=== PATIENT | female | born 1980 | race Caucasian/White ===

== ENCOUNTER → 2016-06-03 | Outpatient (REF) | payer OTHER | LOC: M LABNEURO 12:58 | PROVIDERS: ATTEND Physician Assistant Medical | DX: E55.9 Vitamin D deficiency, unspecified (principal) ==

== ENCOUNTER → 2018-06-12 | Outpatient (CLI) | payer OTHER ==
--- NOTE | 2018-06-12 17:27 | REP ---
GASTRIC EMPTYING STUDY: 06/12/2018. Clinical history: 37-year-old female with early satiety, nausea. Chronic heartburn and reflux. Technique: The patient received 1.04 mCi technetium 99m sulfur colloid in two scrambled eggs mixed with 6 ounces of water. Imaging over the right upper quadrant anterior posterior projections was performed two minute intervals for 90 minutes. Region of interest was drawn around the stomach and gastric emptying calculated by a semiautomated method. Findings: Visually the 90 minutes of imaging showed no evidence of gastroesophageal reflux in the course of this exam. The 90-minute gastric emptying is only 9%. The normal T1 half is 90 minutes and the estimated THE one half for this patient would be extrapolated to 502 minutes which represents very severe delayed gastric emptying. Electronically Signed by Kenroy Martinez MD 06/12/2018 08:51 P
== END ==
LOC: M RAD 12:23
PROVIDERS: ATTEND Physician Assistant Medical
DX: K30 Functional dyspepsia (principal); R11.0 Nausea; R10.84 Generalized abdominal pain
CPT/HCPCS: 78264; A9541

== ENCOUNTER 2018-07-09 11:37 | Day surgery (SDC) | payer OTHER ==
[~2018-07-09] VITALS: Ht 165.1 cm; Wt 107.5 kg
[~2018-07-09 11:37] MED LIST: AMLO5TAB6 PO; BACL10TA2 PO; D-3-50003 PO; EXCETAB80 PO; FLAX100012 PO; GABA600T4 PO; HYDR-643 PO; LEVO100T5 PO; MECL1CHW PO; MIRA3350 PO; PROT1TAB2 PO; RELP40TA PO; TRAM50TA2 PO; VITA500C24 PO
[2018-07-09] MEDS ORDERED: NS 1,000 ML IV ONE (14:00)
[2018-07-09] MEDS ORDERED: TRAZ-160 PO (14:12)
[2018-07-09] MEDS ORDERED: PROPOFOL 200 MG/20 ML VIAL As Ordered ONE (15:23)
[2018-07-09] MEDS ORDERED: LIDOCAINE 2% INJ 100 MG/5 ML SDV (FOR ANES.) As Ordered ONE (15:23)
[2018-07-09] MEDS ORDERED: fentaNYL 100 MCG/2 ML INJECTION (J3010) As Ordered ONE (15:24)
--- NOTE | 2018-07-09 15:36 | ROOR ---
Patient Name: Cleve Mendez Procedure Date: 07/09/2018 3:21 PM Date of : 1980 Age: 38 Room: [facility] Gender: Female Note Status: Finalized Procedure: Upper GI endoscopy Indications: Heartburn, Suspected esophageal reflux, Gastroparesis Providers: Alvino LUI MD Referring MD: Lupe Romero MD Requesting Provider: Medicines: Monitored Anesthesia Care Complications: No immediate complications. Procedure: Pre-Anesthesia Assessment: - The heart rate, respiratory rate, oxygen saturations, blood pressure, adequacy of pulmonary ventilation, and response to care were monitored throughout the procedure. The Endoscope was introduced through the mouth, and advanced to the second part of duodenum. The upper GI endoscopy was accomplished without difficulty. The patient tolerated the procedure well. Findings: The esophagus was normal. The stomach was normal. The examined duodenum was normal. (incidental small diverticulum in second portion) Impression: - Normal esophagus. - Normal stomach. - Normal examined duodenum. - No specimens collected. Recommendation: - Continue present medications. - Gastroparesis diet: - Eat smaller, more frequent meals throughout the day. - Low fat diet. - Liquid/soft foods are tolerated better than solid foods. - Low fiber/well cooked vegetables are tolerated better than high fiber/fibrous foods/raw vegetables. - Avoid medications that inhibit gastric/intestinal motility such as narcotic medications. Alvino Lui MD Alvino LUI MD 07/09/2018 3:35:43 PM Electronically signed by Alvino LUI MD Number of Addenda: 0 Note Initiated On: 07/09/2018 3:21 PM Estimated Blood Loss: Estimated blood loss: none.
--- NOTE | 2018-07-09 15:50 | ROOR ---
Patient Name: Cleve Mendez Procedure Date: 07/09/2018 3:24 PM Date of : 1980 Age: 38 Room: [facility] Gender: Female Note Status: Finalized Procedure: Colonoscopy Indications: High risk colon cancer surveillance: Personal history of colonic polyps, Last colonoscopy: May 2013 Providers: Alvino LUI MD Referring MD: Lupe Romero MD Requesting Provider: Medicines: Monitored Anesthesia Care Complications: No immediate complications. Procedure: Pre-Anesthesia Assessment: - The heart rate, respiratory rate, oxygen saturations, blood pressure, adequacy of pulmonary ventilation, and response to care were monitored throughout the procedure. The Colonoscope was introduced through the anus and advanced to 10 cm into the ileum. The colonoscopy was performed without difficulty. The patient tolerated the procedure well. The quality of the bowel preparation was adequate. Findings: The perianal and digital rectal examinations were normal. (EXAM: Complete, PREP: Fair/Adequate) Multiple medium-mouthed diverticula were found in the sigmoid colon. Small Internal Hemorrhoids. The exam was otherwise without abnormality on direct and retroflexion views. Impression: - (EXAM: Complete, PREP: Fair/Adequate) - Diverticulosis in the sigmoid colon. - Small Internal Hemorrhoids. - The examination was otherwise normal on direct and retroflexion views. - No specimens collected. Recommendation: - Repeat colonoscopy in 5 years because the bowel preparation was suboptimal. Alvino Lui MD Alvino ULI MD 07/09/2018 3:50:26 PM Electronically signed by Alvino LUI MD Number of Addenda: 0 Note Initiated On: 07/09/2018 3:24 PM Estimated Blood Loss: Estimated blood loss: none.
[2018-07-09] MEDS ORDERED: ONDANSETRON 4MG/2ML VIAL (J2405) As Ordered ONE (15:57)
[2018-07-09 16:45] VITALS: BP 139/85
== END 2018-07-09 17:01 | disposition home or self-care (01) ==
LOC: M OPP 11:37
PROVIDERS: ATTEND Internal Medicine Gastroenterology
DX: Z86.010 Personal history of colon polyps (principal); K57.30 Diverticulosis of large intestine without perforation or abscess without bleeding; K64.8 Other hemorrhoids; R12 Heartburn; K31.84 Gastroparesis; G47.30 Sleep apnea, unspecified; E03.9 Hypothyroidism, unspecified; J45.909 Unspecified asthma, uncomplicated; K21.9 Gastro-esophageal reflux disease without esophagitis; K44.9 Diaphragmatic hernia without obstruction or gangrene; K57.92 Diverticulitis of intestine, part unspecified, without perforation or abscess without bleeding; K22.70 Barrett's esophagus without dysplasia; Z88.1 Allergy status to other antibiotic agents; Z88.8 Allergy status to other drugs, medicaments and biological substances; Z79.891 Long term (current) use of opiate analgesic; Z79.899 Other long term (current) drug therapy; Z83.3 Family history of diabetes mellitus; Z82.49 Family history of ischemic heart disease and other diseases of the circulatory system; Z84.1 Family history of disorders of kidney and ureter; Z80.3 Family history of malignant neoplasm of breast; Z80.41 Family history of malignant neoplasm of ovary; Z80.42 Family history of malignant neoplasm of prostate
CPT/HCPCS: 43235; 45378; J3010

== ENCOUNTER → 2019-02-04 | Outpatient (CLI) | payer OTHER ==
[~2019-02-04] MED LIST changes: +DEXI60CA2 PO; +RIZA10TA58 PO; +TRAZ-252 PO
[2019-02-04 10:51] LABS: BASO # 0.1 10^3/uL (0.0-0.2); BASO % 0.9 % (0.0-1.0); EOS # 0.2 10^3/uL (0.0-0.5); EOS % 2.4 % (0.0-3.0); HEMOGLOBIN 14.1 g/dl (12.0-15.5); LYMPH # 3.2 10^3/uL (1.5-5.0); LYMPH % 32.4 % (24.0-44.0); MEAN CORPUSCULAR HGB CONC 32.8 g/dl (32.0-36.5); MEAN CORPUSCULAR VOLUME 94.5 fl (80.0-96.0); MONO # 0.8 10^3/uL (0.0-0.8); NEUTROPHILS # 5.5 10^3/uL (1.5-8.5); PLATELET COUNT, AUTOMATED 371 10^3/uL (150-450); RED BLOOD COUNT 4.55 10^6/uL (4.00-5.40); WHITE BLOOD COUNT 9.8 10^3/uL (4.0-10.0)
[2019-02-04 11:10] LABS: HEMOGLOBIN A1c 5.3 %
[2019-02-04 11:24] LABS: ALBUMIN 3.7 GM/DL (3.2-5.2); ALT/SGPT 46 U/L (12-78); BILIRUBIN,TOTAL 0.4 MG/DL (0.2-1.0); BLOOD UREA NITROGEN 9 MG/DL (7-18); CALCIUM LEVEL 9.5 MG/DL (8.5-10.1); CARBON DIOXIDE LEVEL 24 MEQ/L (21-32); CHLORIDE LEVEL 109 MEQ/L (98-107); CHOLESTEROL LEVEL 204 MG/DL (<200); CHOLESTEROL RISK RATIO 4.434 (<5); CREATININE FOR GFR 0.77 MG/DL (0.55-1.30); FREE T4 1.35 NG/DL (0.76-1.46); GLOMERULAR FILTRATION RATE > 60.0 (>58); GLUCOSE, FASTING 86 MG/DL (70-100); HDL CHOLESTEROL 46 MG/DL (>40); LDL CHOLESTEROL 129 MG/DL (<100); NON-HDL-C 158 MG/DL; POTASSIUM SERUM 4.2 MEQ/L (3.5-5.1); SODIUM LEVEL 141 MEQ/L (136-145); TOTAL PROTEIN 8.4 GM/DL (6.4-8.2); TRIGLYCERIDES LEVEL 144 MG/DL (<150)
== END ==
LOC: M LAB 10:01
PROVIDERS: ATTEND Nurse Practitioner Family
DX: E03.9 Hypothyroidism, unspecified (principal); F32.9 Major depressive disorder, single episode, unspecified

== ENCOUNTER → 2019-08-19 | Outpatient (REF) | payer OTHER ==
[2019-08-19 18:32] LABS: BASO # 0.1 10^3/uL (0.0-0.2); BASO % 0.5 % (0.0-1.0); EOS # 0.1 10^3/uL (0.0-0.5); EOS % 0.4 % (0.0-3.0); HEMATOCRIT 44.7 % (36.0-47.0); HEMOGLOBIN 14.6 g/dl (12.0-15.5); MEAN CORPUSCULAR HGB CONC 32.7 g/dl (32.0-36.5); MEAN CORPUSCULAR VOLUME 94.9 fl (80.0-96.0); MONO # 1.5 10^3/uL (0.0-0.8); MONO % 7.2 % (0.0-5.0); NEUTROPHILS # 13.9 10^3/uL (1.5-8.5); NEUTROPHILS % 67.4 % (36.0-66.0); PLATELET COUNT, AUTOMATED 370 10^3/uL (150-450); RED BLOOD COUNT 4.71 10^6/uL (4.00-5.40)
[2019-08-19 18:36] LABS: WHITE BLOOD COUNT 20.7 10^3/uL (4.0-10.0)
[2019-08-19 18:44] LABS: INR 1.03; PROTHROMBIN TIME 13.2 SECONDS (11.8-14.0)
[2019-08-19 18:45] LABS: PARTIAL THROMBOPLASTIN TIME 33.8 SECONDS (25.0-38.4)
[2019-08-19 18:46] LABS: HEMOGLOBIN A1c 5.7 %
[2019-08-19 19:00] LABS: ALBUMIN 3.8 GM/DL (3.2-5.2); ALT/SGPT 26 U/L (12-78); BILIRUBIN,TOTAL 0.6 MG/DL (0.2-1.0); BLOOD UREA NITROGEN 12 MG/DL (7-18); CARBON DIOXIDE LEVEL 23 MEQ/L (21-32); CHLORIDE LEVEL 104 MEQ/L (98-107); CHOLESTEROL LEVEL 204 MG/DL (<200); CHOLESTEROL RISK RATIO 3.709 (<5); CREATININE FOR GFR 0.87 MG/DL (0.55-1.30); FREE T4 1.35 NG/DL (0.76-1.46); GLOMERULAR FILTRATION RATE > 60.0 (>58); GLUCOSE, FASTING 88 MG/DL (70-100); HDL CHOLESTEROL 55 MG/DL (>40); LDL CHOLESTEROL 119 MG/DL (<100); NON-HDL-C 149 MG/DL; SODIUM LEVEL 137 MEQ/L (136-145); TOTAL PROTEIN 8.2 GM/DL (6.4-8.2); TRIGLYCERIDES LEVEL 152 MG/DL (<150)
== END ==
LOC: M SFHCPLAZ 15:48
PROVIDERS: ATTEND Family Medicine
DX: Z01.818 Encounter for other preprocedural examination (principal)

== ENCOUNTER → 2020-01-01 | Outpatient (CLI) | payer OTHER ==
[~2020-01-01] MED LIST changes: +AMLO1TAB24 PO; -AMLO5TAB6 PO
== END ==
LOC: M PLALAB 10:12
PROVIDERS: ATTEND Physician Assistant Medical
DX: R51 Headache (principal); H53.9 Unspecified visual disturbance

== ENCOUNTER → 2020-01-31 | Outpatient (CLI) | payer OTHER ==
--- NOTE | 2020-01-31 13:05 | REPPI ---
INDICATION: R05 COUGH. COMPARISON: 09/08/2005 FINDINGS: The superior mediastinal structures are midline. The cardiac silhouette is unremarkable in size, shape, and position. The diaphragmatic surfaces of the lungs are regular, and the costophrenic angles are clear. The pulmonary camacho are clear. The imaged osseous structures are intact. IMPRESSION: There is no acute cardiopulmonary disease. <Electronically signed by Jarad Malave > 01/31/20 [id number]
== END ==
LOC: M PLAIMG 12:10
PROVIDERS: ATTEND Nurse Practitioner Family
DX: R05 Cough (principal)

== ENCOUNTER → 2020-01-31 | Outpatient (REF) | payer OTHER ==
[2020-01-31 15:45] LABS: BASO # 0.1 10^3/uL (0.0-0.2); BASO % 0.4 % (0.0-1.0); EOS # 0.1 10^3/uL (0.0-0.5); EOS % 0.3 % (0.0-3.0); HEMATOCRIT 42.6 % (36.0-47.0); HEMOGLOBIN 13.7 g/dl (12.0-15.5); LYMPH # 3.3 10^3/uL (1.5-5.0); LYMPH % 19.7 % (24.0-44.0); MEAN CORPUSCULAR HEMOGLOBIN 30.4 pg (27.0-33.0); MEAN CORPUSCULAR HGB CONC 32.2 g/dl (32.0-36.5); MEAN CORPUSCULAR VOLUME 94.5 fl (80.0-96.0); MONO # 1.4 10^3/uL (0.0-0.8); MONO % 8.4 % (0.0-5.0); NEUTROPHILS % 70.7 % (36.0-66.0); PLATELET COUNT, AUTOMATED 426 10^3/uL (150-450); RED BLOOD COUNT 4.51 10^6/uL (4.00-5.40)
[2020-01-31 15:57] LABS: HEMOGLOBIN A1c 5.7 %
[2020-01-31 16:19] LABS: ALBUMIN 3.6 GM/DL (3.2-5.2); ALT/SGPT 28 U/L (12-78); BILIRUBIN,TOTAL 0.3 MG/DL (0.2-1.0); BLOOD UREA NITROGEN 9 MG/DL (7-18); CALCIUM LEVEL 9.4 MG/DL (8.5-10.1); CARBON DIOXIDE LEVEL 23 MEQ/L (21-32); CHLORIDE LEVEL 107 MEQ/L (98-107); CHOLESTEROL LEVEL 178 MG/DL (<200); CHOLESTEROL RISK RATIO 3.178 (<5); CREATININE FOR GFR 0.77 MG/DL (0.55-1.30); FREE T4 1.12 NG/DL (0.76-1.46); GLOMERULAR FILTRATION RATE > 60.0 (>58); GLUCOSE, FASTING 99 MG/DL (70-100); HDL CHOLESTEROL 56 MG/DL (>40); LDL CHOLESTEROL 105 MG/DL (<100); NON-HDL-C 122 MG/DL; POTASSIUM SERUM 4.2 MEQ/L (3.5-5.1); SODIUM LEVEL 139 MEQ/L (136-145); THYROID STIMULATING HORMONE 0.638 uIU/ML (0.358-3.740); TOTAL PROTEIN 8.2 GM/DL (6.4-8.2); TRIGLYCERIDES LEVEL 83 MG/DL (<150)
== END ==
LOC: M SFHCPLAZ 12:10
PROVIDERS: ATTEND Nurse Practitioner Family
DX: E03.9 Hypothyroidism, unspecified (principal); E78.2 Mixed hyperlipidemia; F32.9 Major depressive disorder, single episode, unspecified; R73.01 Impaired fasting glucose

== ENCOUNTER → 2020-08-21 | Outpatient (REF) | payer OTHER ==
[2020-08-21 12:51] LABS: BASO # 0.1 10^3/uL (0.0-0.2); BASO % 0.8 % (0.0-1.0); EOS # 0.2 10^3/uL (0.0-0.5); EOS % 1.3 % (0.0-3.0); HEMATOCRIT 42.8 % (36.0-47.0); HEMOGLOBIN 14.2 g/dl (12.0-15.5); LYMPH # 3.8 10^3/uL (1.5-5.0); LYMPH % 29.5 % (24.0-44.0); MEAN CORPUSCULAR HEMOGLOBIN 31.6 pg (27.0-33.0); MEAN CORPUSCULAR HGB CONC 33.2 g/dl (32.0-36.5); MEAN CORPUSCULAR VOLUME 95.1 fl (80.0-96.0); MONO # 1.1 10^3/uL (0.0-0.8); MONO % 8.3 % (2.0-8.0); NEUTROPHILS # 7.7 10^3/uL (1.5-8.5); NEUTROPHILS % 59.8 % (36.0-66.0); PLATELET COUNT, AUTOMATED 374 10^3/uL (150-450); WHITE BLOOD COUNT 12.8 10^3/uL (4.0-10.0)
[2020-08-21 13:09] LABS: HEMOGLOBIN A1c 5.4 %
[2020-08-21 13:41] LABS: ALBUMIN 3.7 GM/DL (3.2-5.2); ALT/SGPT 23 U/L (12-78); BILIRUBIN,TOTAL 0.4 MG/DL (0.2-1.0); BLOOD UREA NITROGEN 8 MG/DL (7-18); CALCIUM LEVEL 9.1 MG/DL (8.5-10.1); CARBON DIOXIDE LEVEL 22 MEQ/L (21-32); CHLORIDE LEVEL 108 MEQ/L (98-107); CHOLESTEROL LEVEL 195 MG/DL (<200); CHOLESTEROL RISK RATIO 4.148 (<5); CREATININE FOR GFR 0.76 MG/DL (0.55-1.30); FREE T4 1.07 NG/DL (0.76-1.46); GLOMERULAR FILTRATION RATE > 60.0 (>58); GLUCOSE, FASTING 91 MG/DL (70-100); HDL CHOLESTEROL 47 MG/DL (>40); LDL CHOLESTEROL 116 MG/DL (<100); NON-HDL-C 148 MG/DL; POTASSIUM SERUM 4.2 MEQ/L (3.5-5.1); SODIUM LEVEL 138 MEQ/L (136-145); TOTAL PROTEIN 7.9 GM/DL (6.4-8.2); TRIGLYCERIDES LEVEL 159 MG/DL (<150)
== END ==
LOC: M PLALAB 10:25
PROVIDERS: ATTEND Nurse Practitioner Family
DX: E78.2 Mixed hyperlipidemia (principal); E03.9 Hypothyroidism, unspecified; R73.01 Impaired fasting glucose

== ENCOUNTER → 2022-08-05 | Outpatient (CLI) | payer OTHER | LOC: M PLAIMG 06:39 | PROVIDERS: ATTEND Nurse Practitioner Family | DX: M54.16 Radiculopathy, lumbar region (principal) ==

== ENCOUNTER → 2022-09-23 | Outpatient (CLI) | payer OTHER | LOC: M SOG 07:55 | PROVIDERS: ATTEND Orthopaedic Surgery | DX: M51.37 Other intervertebral disc degeneration, lumbosacral region (principal); M54.50 Low back pain, unspecified ==

== ENCOUNTER 2023-10-12 08:28 | Day surgery (SDC) | payer OTHER ==
[~2023-10-12] VITALS: Ht 165.1 cm; Wt 92.8 kg
[~2023-10-12 08:28] MED LIST changes: +AMIT10TA7 PO; +B-122500 PO; +DULC5TAB PO; +FAMO20TA PO; +ZONI50CA11 PO
[2023-10-12] MEDS: NS 1,000 ML IV ONE (09:31)
[2023-10-12] MEDS ORDERED: LIDOCAINE 2% 100MG/5ML SDV (FOR ANES.) As Ordered ONE (10:23)
[2023-10-12] MEDS ORDERED: propofoL 200 MG/20 ML VIAL As Ordered ONE (10:23)
[2023-10-12 11:11] VITALS: TEMP 99
[2023-10-12 11:35] VITALS: BP 122/67; O2SAT 100
== END 2023-10-12 11:44 | disposition home or self-care (01) ==
LOC: M OPP 08:28
PROVIDERS: ATTEND Internal Medicine Gastroenterology
DX: Z12.11 Encounter for screening for malignant neoplasm of colon (principal); Z86.010 Personal history of colon polyps; K64.8 Other hemorrhoids; K57.30 Diverticulosis of large intestine without perforation or abscess without bleeding; G47.30 Sleep apnea, unspecified; Z99.89 Dependence on other enabling machines and devices; E03.9 Hypothyroidism, unspecified; Z79.890 Hormone replacement therapy; Z79.891 Long term (current) use of opiate analgesic; Z79.899 Other long term (current) drug therapy; Z88.1 Allergy status to other antibiotic agents; Z88.8 Allergy status to other drugs, medicaments and biological substances